=== PATIENT | male | born 1960 | race Caucasian/White ===

== ENCOUNTER → 2018-08-30 | Outpatient (CLI) | payer OTHER ==
[~2018-08-30] MED LIST: ALLP300T PO; ASP81TEC PO; CHOL10003 PO; CHOL50003 PO; CLC600T; GARL200T PO; GARLIC PO; MULT-850 PO; MULT1TAB63; OMG1KC PO; TELM1TAB3 PO
== END ==
LOC: CARD 07:47
PROVIDERS: ATTEND Physician Assistant
DX: I25.10 Atherosclerotic heart disease of native coronary artery without angina pectoris (principal); I10 Essential (primary) hypertension; E78.2 Mixed hyperlipidemia; R07.9 Chest pain, unspecified
CPT/HCPCS: 93306

== ENCOUNTER → 2018-09-20 | Outpatient (CLI) | payer OTHER ==
[~2018-09-20] MED LIST changes: +CATHETER FLUSH 10 ML SYR IV PRN
--- NOTE | 2018-09-20 14:54 | STRESS TEST ---
DATE OF SERVICE: 09/20/2018 EXERCISE MYOVIEW STRESS TEST REFERRING PHYSICIAN: Marino Buitrago DO Baseline heart rate is 66. Baseline blood pressure 143/75. Baseline EKG is sinus rhythm with right bundle branch block. In summary, the patient was injected with 10.88 mCi of technetium-99 Myoview and the resting images were obtained. Then, the patient started exercising with a baseline heart rate, blood pressure and EKG mentioned above. The patient was able to exercise for 4 minutes on standard Juan protocol. With peak exercise level, EKG was showing nondiagnostic changes. Peak blood pressure was 210/69. During recovery, heart rate and blood pressure returned to baseline. The patient was injected with 30.8 mCi of technetium-99 Myoview at the peak stress level. The resting and stress images were reviewed and compared in the short axis, horizontal long axis, and vertical long axis views. Review of the images showed diaphragmatic attenuation affecting the quality of the images, fixed defect at the inferior wall and inferoapical segment with no significant reversibility. SSS is 2, SDS 0. TID value 0.96. On the gated images, the left ventricle appeared to be in normal size with normal contractility. Calculated ejection fraction 58%. CONCLUSION: 1. Fair exercise tolerance, a total of 4 minutes on standard Juan protocol, total of 5.8 METS achieving 83% of maximum expected heart rate. 2. Baseline right bundle branch block persisted throughout test. 3. Diaphragmatic attenuation with typical male pattern with no significant ischemia or infarction on SPECT images. 4. Severe hypertensive response to exercise with peak blood pressure 210/69. 5. Normal left ventricular size with normal contractility. Calculated ejection fraction 58%. Job ID: [id number] DocumentID: [id number] Dictated Date: 09/20/2018 14:30:44 [employer]ard Table [employer]er Date: 09/20/2018 14:53:05 Dictated By: SOL JUNG MD
== END ==
LOC: CARD 07:20
PROVIDERS: ATTEND Internal Medicine Cardiovascular Disease
DX: I25.10 Atherosclerotic heart disease of native coronary artery without angina pectoris (principal); R07.9 Chest pain, unspecified; I10 Essential (primary) hypertension; E78.2 Mixed hyperlipidemia
CPT/HCPCS: 78452; 93017

== ENCOUNTER → 2020-12-26 | Outpatient (CLI) | payer BC, OTHER ==
[~2020-12-26] MED LIST changes: -CATHETER FLUSH 10 ML SYR IV PRN
== END ==
LOC: CARD 13:08
PROVIDERS: ATTEND Internal Medicine Cardiovascular Disease
DX: I10 Essential (primary) hypertension (principal)
CPT/HCPCS: 93306